=== PATIENT | male | born 1980 | race Hispanic/Latino ===

== ENCOUNTER 2017-05-05 22:51 | Emergency (ER) | payer MEDICARE, OTHER ==
[2017-05-05] MEDS ORDERED: ACETAMINOPHEN 325 MG TAB ONE (22:58)
[2017-05-05] MEDS ORDERED: OSELTAMIVIR PHOSPHATE 75 MG CAP ONE (23:38)
== END 2017-05-05 23:45 | disposition home or self-care (01) ==
LOC: EDH 22:51
DX: J10.1 Influenza due to other identified influenza virus with other respiratory manifestations (principal)
CPT/HCPCS: 87804; 87880

== ENCOUNTER → 2018-05-22 | Outpatient (CLI) | payer OTHER | END | disposition home or self-care (01) | LOC: OIH 09:38 | PROVIDERS: ATTEND Family Medicine | DX: I10 Essential (primary) hypertension (principal) | CPT/HCPCS: 71046 ==

== ENCOUNTER → 2018-08-25 | Outpatient (CLI) | payer OTHER | END | disposition home or self-care (01) | LOC: OIH 09:21 | PROVIDERS: ATTEND Family Medicine | DX: M77.32 Calcaneal spur, left foot (principal); M79.672 Pain in left foot | CPT/HCPCS: 73630 ==

== ENCOUNTER 2019-12-10 21:37 | Emergency (ER) | payer OTHER ==
[2019-12-10] MEDS ORDERED: OCTYL 2-CYANOACRYLATE 1 EACH TP ONE (23:01)
[2019-12-10 23:17] LABS: BASOPHILS % (AUTO) 0.3 % (0.0-5.0); EOSINOPHILS % (AUTO) 0.6 % (0.0-8.0); HEMATOCRIT 39.6 % (42-54); LYMPHOCYTES % (AUTO) 14.6 % (21.0-51.0); MEAN CORPUSCULAR HEMOGLOBIN 29.1 pg (27.0-33.0); MEAN CORPUSCULAR HGB CONC 33.3 g/dL (32.0-36.0); MEAN CORPUSCULAR VOLUME 87.4 fL (79-99); MONOCYTES % (AUTO) 5.5 % (3.0-13.0); NEUTROPHILS % (AUTO) 78.6 % (40.0-77.0); PLATELET COUNT (AUTO) 219 K/uL (130-400); RED BLOOD CELL COUNT(AUTO) 4.53 MIL/uL (4.50-6.20); RED CELL DISTRIBUTION WIDTH 13.2 % (11.0-15.5); WHITE BLOOD COUNT (AUTO) 11.3 K/uL (4.8-10.8)
[2019-12-10 23:26] LABS: CREATININE 1.6 mg/dL (0.5-1.5); POTASSIUM 4.1 mmol/L (3.5-5.1)
[2019-12-10 23:27] LABS: ALBUMIN 3.7 g/dL (3.5-5.0)
[2019-12-10 23:34] LABS: INR 0.99 (0.85-1.15); PARTIAL THROMBOPLASTIN TIME 25.2 SEC (26.3-35.5); PROTHROMBIN TIME 10.7 SEC (9.6-11.6)
[2019-12-11 00:36] LABS: BILIRUBIN,TOTAL 0.6 mg/dL (0.2-1.0); TOTAL PROTEIN, SERUM 7.6 g/dL (6.0-8.3)
== END 2019-12-11 00:40 | disposition home or self-care (01) ==
LOC: EDH 21:37
DX: I83.892 Varicose veins of left lower extremity with other complications (principal); E66.9 Obesity, unspecified; I10 Essential (primary) hypertension; E78.00 Pure hypercholesterolemia, unspecified; E03.9 Hypothyroidism, unspecified
CPT/HCPCS: 12001; 36415; 80053; 85025; 85610; 85730; 86850; 86900; 86901

== ENCOUNTER 2020-01-15 15:44 | Emergency (ER) | payer OTHER ==
[2020-01-15] MEDS ORDERED: SODIUM CHLORIDE 0.9% 1000ML 1,000 ML IV ONE (17:12)
[2020-01-15 17:16] LABS: BASOPHILS % (AUTO) 0.3 % (0.0-5.0); EOSINOPHILS % (AUTO) 0.5 % (0.0-8.0); HEMATOCRIT 37.7 % (42-54); LYMPHOCYTES % (AUTO) 10.3 % (21.0-51.0); MEAN CORPUSCULAR HEMOGLOBIN 28.1 pg (27.0-33.0); MEAN CORPUSCULAR HGB CONC 32.9 g/dL (32.0-36.0); MEAN CORPUSCULAR VOLUME 85.5 fL (79-99); MONOCYTES % (AUTO) 8.4 % (3.0-13.0); NEUTROPHILS % (AUTO) 79.3 % (40.0-77.0); PLATELET COUNT (AUTO) 260 K/uL (130-400); RED BLOOD CELL COUNT(AUTO) 4.41 MIL/uL (4.50-6.20); RED CELL DISTRIBUTION WIDTH 12.9 % (11.0-15.5); WHITE BLOOD COUNT (AUTO) 10.3 K/uL (4.8-10.8)
[2020-01-15] MEDS ORDERED: CLINDAMYCIN 600 MG/D5% WATER 50 ML IV ONE (17:32)
[2020-01-15 17:34] LABS: INR 1.04 (0.85-1.15); PARTIAL THROMBOPLASTIN TIME 30.1 SEC (26.3-35.5); PROTHROMBIN TIME 11.2 SEC (9.6-11.6)
[2020-01-15 17:49] LABS: CREATININE 1.2 mg/dL (0.5-1.5)
[2020-01-15 17:50] LABS: B-TYPE NATRIURETIC PEPTIDE 32 pg/mL (0-100)
[2020-01-15 17:54] LABS: ALBUMIN 3.6 g/dL (3.5-5.0); BILIRUBIN,TOTAL 0.9 mg/dL (0.2-1.0); TOTAL PROTEIN, SERUM 8.3 g/dL (6.0-8.3)
[2020-01-15 18:02] LABS: CRP QUANTITATIVE 166.7 mg/L (0.00-9.0)
[2020-01-15 18:23] LABS: ERYTHROCYTE SEDIMENTATION RATE 76 MM/HR (0-15)
== END 2020-01-15 18:56 | disposition home or self-care (01) ==
LOC: EDH 15:44
DX: I87.2 Venous insufficiency (chronic) (peripheral) (principal); L03.116 Cellulitis of left lower limb; R60.0 Localized edema; E78.00 Pure hypercholesterolemia, unspecified; I10 Essential (primary) hypertension; E03.9 Hypothyroidism, unspecified
CPT/HCPCS: 36415; 71045; 80053; 82550; 83880; 84484; 85025; 85610; 85651; 85730; 86140; 93005; 93971; 96365; 99285; J3490; J7030

== ENCOUNTER → 2020-04-07 | Outpatient (CLI) | payer OTHER | END | disposition home or self-care (01) | LOC: SHCH 14:08 | PROVIDERS: ATTEND Internal Medicine Cardiovascular Disease | DX: Z09 Encounter for follow-up examination after completed treatment for conditions other than malignant neoplasm (principal); I87.2 Venous insufficiency (chronic) (peripheral) | CPT/HCPCS: 93971 ==

== ENCOUNTER → 2020-07-28 | Outpatient (CLI) | payer OTHER, MEDICARE | END | disposition home or self-care (01) | LOC: OIH 13:47 | PROVIDERS: ATTEND Family Medicine | DX: J44.9 Chronic obstructive pulmonary disease, unspecified (principal) | CPT/HCPCS: 71046 ==

== ENCOUNTER → 2020-09-16 | Outpatient (CLI) | payer OTHER, MEDICARE | END | disposition home or self-care (01) | LOC: SHCH 14:46 | PROVIDERS: ATTEND Internal Medicine Cardiovascular Disease | DX: I87.2 Venous insufficiency (chronic) (peripheral) (principal); Q25.46 Tortuous aortic arch | CPT/HCPCS: 93970 ==

== ENCOUNTER 2020-12-17 21:39 | Emergency (ER) | payer OTHER, MEDICARE ==
[~2020-12-17] VITALS: Ht 167.6 cm; Wt 164.2 kg
[2020-12-17 21:40] VITALS: BP 101/58
[2020-12-18] MEDS ORDERED: IBUPROFEN 600 MG TABLET PO ONE
[2020-12-18] MEDS ORDERED: ACETAMINOPHEN 500 MG TABLET PO ONE
[2020-12-18 00:20] LABS: APPEARANCE,URINE Clear (CLEAR); BILIRUBIN,URINE Negative (NEGATIVE); COLOR,URINE Yellow (YELLOW); GLUCOSE, URINE (UA) Negative (NEGATIVE); KETONES,URINE Negative (NEGATIVE); LEUKOCYTE ESTERASE ,URINE Negative (NEGATIVE); NITRATE,URINE Negative (NEGATIVE); OCCULT BLOOD,URINE Negative (NEGATIVE); PH,URINE 5.5 (5.0-8.0); PROTEIN,URINE Negative (NEGATIVE); UROBILINOGEN,URINE 0.2 mg/dL (0.2-1.0)
[2020-12-18 01:05] LABS: BASOPHILS % (AUTO) 0.3 % (0.0-5.0); EOSINOPHILS % (AUTO) 0.2 % (0.0-8.0); HEMATOCRIT 41.7 % (42-54); LYMPHOCYTES % (AUTO) 6.2 % (21.0-51.0); MEAN CORPUSCULAR HEMOGLOBIN 29.6 pg (27.0-33.0); MEAN CORPUSCULAR HGB CONC 33.6 g/dL (32.0-36.0); MEAN CORPUSCULAR VOLUME 88.2 fL (79-99); MONOCYTES % (AUTO) 4.4 % (3.0-13.0); NEUTROPHILS % (AUTO) 88.6 % (40.0-77.0); PLATELET COUNT (AUTO) 206 K/uL (130-400); RED BLOOD CELL COUNT(AUTO) 4.73 MIL/uL (4.50-6.20); RED CELL DISTRIBUTION WIDTH 13.8 % (11.0-15.5); WHITE BLOOD COUNT (AUTO) 9.5 K/uL (4.8-10.8)
[2020-12-18 01:19] LABS: ALBUMIN 3.6 g/dL (3.5-5.0); BILIRUBIN,TOTAL 0.9 mg/dL (0.2-1.0); CREATININE 1.5 mg/dL (0.5-1.5); POTASSIUM 4.1 mmol/L (3.5-5.1); TOTAL PROTEIN, SERUM 8.6 g/dL (6.0-8.3)
[2020-12-18 01:23] LABS: B-TYPE NATRIURETIC PEPTIDE 61 pg/mL (0-100)
[2020-12-18] MEDS ORDERED: CLINDAMYCIN IVPB 900MG/50ML 50 ML IV ONE (01:30)
[2020-12-18] MEDS ORDERED: CLIN300C10 PO (03:09)
== END 2020-12-18 03:59 | disposition home or self-care (01) ==
LOC: EDH 21:39
DX: L03.116 Cellulitis of left lower limb (principal); R50.9 Fever, unspecified; R60.0 Localized edema; R63.0 Anorexia; Z20.822 Contact with and (suspected) exposure to COVID-19; E03.9 Hypothyroidism, unspecified; E11.9 Type 2 diabetes mellitus without complications; E78.00 Pure hypercholesterolemia, unspecified; Z79.1 Long term (current) use of non-steroidal anti-inflammatories (NSAID); Z68.43 Body mass index [BMI] 50.0-59.9, adult
CPT/HCPCS: 36415; 71045; 80053; 81003; 83605; 83880; 84145; 84484; 85025; 87040; 87077; 87088; 87186; 87635; 87804; 93005; 96365; C9803; J3490

== ENCOUNTER 2021-03-29 01:24 | Emergency (ER) | payer OTHER, MEDICARE ==
[~2021-03-29] VITALS: Ht 167.6 cm; Wt 167.4 kg
[~2021-03-29 01:24] MED LIST: CLIN-141 PO
[2021-03-29] MEDS ORDERED: IOHEXOL 350 MG/ML 100ML INFUS..BTL IV ONE (01:50)
[2021-03-29 01:54] LABS: BASOPHILS % (AUTO) 0.7 % (0.0-5.0); EOSINOPHILS % (AUTO) 2.5 % (0.0-8.0); HEMATOCRIT 46.6 % (42-54); LYMPHOCYTES % (AUTO) 20.6 % (21.0-51.0); MEAN CORPUSCULAR HEMOGLOBIN 29.2 pg (27.0-33.0); MEAN CORPUSCULAR VOLUME 88.3 fL (79-99); MONOCYTES % (AUTO) 5.9 % (3.0-13.0); NEUTROPHILS % (AUTO) 69.7 % (40.0-77.0); PLATELET COUNT (AUTO) 213 K/uL (130-400); RED BLOOD CELL COUNT(AUTO) 5.28 MIL/uL (4.50-6.20); RED CELL DISTRIBUTION WIDTH 13.8 % (11.0-15.5); WHITE BLOOD COUNT (AUTO) 9.6 K/uL (4.8-10.8)
[2021-03-29 01:57] LABS: CARBON DIOXIDE 25 mmol/L (21-32); CHLORIDE 101 mmol/L (101-111); CREATININE 1.3 mg/dL (0.5-1.5); GLOMERULAR FILTR. RATE CALC 65 mL/min (>60); GLUCOSE,RANDOM 107 mg/dL (70-105); POTASSIUM 4.4 mmol/L (3.5-5.1); SODIUM SERUM 135 mmol/L (136-145); UREA NITROGEN, BLOOD 22 mg/dL (7-18)
[2021-03-29 02:02] LABS: ALANINE AMINOTRANSFERASE 33 U/L (12-78); ALBUMIN 4.2 g/dL (3.5-5.0); ALCOHOL, BLOOD < 3 mg/dL (0-10); ASPARTATE AMINOTRANSFERASE 29 U/L (10-37); BILIRUBIN,TOTAL 0.4 mg/dL (0.2-1.0); LIPASE 113 U/L (114-286)
[2021-03-29 02:05] LABS: APPEARANCE,URINE Clear (CLEAR); BILIRUBIN,URINE Negative (NEGATIVE); COLOR,URINE Yellow (YELLOW); GLUCOSE, URINE (UA) Negative (NEGATIVE); KETONES,URINE Negative (NEGATIVE); LEUKOCYTE ESTERASE ,URINE Negative (NEGATIVE); NITRATE,URINE Negative (NEGATIVE); OCCULT BLOOD,URINE Negative (NEGATIVE); PH,URINE 5.5 (5.0-8.0); PROTEIN,URINE Trace mg/dL (NEGATIVE); UROBILINOGEN,URINE 0.2 mg/dL (0.2-1.0)
[2021-03-29 02:15] LABS: AMPHET/METH SCREEN,URINE NEGATIVE (NEGATIVE); BARBITURATE SCREEN, URINE NEGATIVE (NEGATIVE); BENZODIAZEPINES SCREEN,URINE NEGATIVE (NEGATIVE); CANNABINOID SCREEN,URINE NEGATIVE (NEGATIVE); COCAINE SCREEN,URINE NEGATIVE (NEGATIVE); OPIATE SCREEN,URINE NEGATIVE (NEGATIVE); PHENCYCLIDINE SCREEN,URINE NEGATIVE (NEGATIVE)
[2021-03-29 02:24] LABS: B-TYPE NATRIURETIC PEPTIDE 9 pg/mL (0-100)
[2021-03-29 02:33] LABS: RBC,URINE 0-1 /HPF (0-1); WBC,URINE 0-1 /HPF (0-1)
[2021-03-29 02:34] LABS: BACTERIA,URINE Rare /HPF (None Seen)
[2021-03-29] MEDS ORDERED: CYCL-309 PO (03:49)
[2021-03-29] MEDS ORDERED: MELO7.5T12 PO (03:49)
[2021-03-29] MEDS ORDERED: KETOROLAC 30MG VIAL (30MG/ML) IV ONE (04:00)
[2021-03-29] MEDS ORDERED: ORPHENADRINE CITRATE 30 MG/ML ML IV ONE (04:00)
[2021-03-29 04:08] VITALS: BP 153/92
== END 2021-03-29 04:24 | disposition home or self-care (01) ==
LOC: EDH 01:24
DX: S39.011A Strain of muscle, fascia and tendon of abdomen, initial encounter (principal); S30.1XXA Contusion of abdominal wall, initial encounter; E03.9 Hypothyroidism, unspecified; E78.00 Pure hypercholesterolemia, unspecified; I10 Essential (primary) hypertension; K42.9 Umbilical hernia without obstruction or gangrene; Z79.1 Long term (current) use of non-steroidal anti-inflammatories (NSAID); Z95.5 Presence of coronary angioplasty implant and graft; V49.3XXA Car occupant (driver) (passenger) injured in unspecified nontraffic accident, initial encounter; Y93.89 Activity, other specified; Y92.89 Other specified places as the place of occurrence of the external cause; Y99.8 Other external cause status
CPT/HCPCS: 36415; 70450; 71260; 72125; 74177; 80053; 80305; 81001; 83690; 83880; 84484; 85025; 93005; 96374; 96375; 99285; J1885; J2360; Q9967

== ENCOUNTER 2021-10-04 13:30 | Emergency (ER) | payer MEDICARE, OTHER ==
[~2021-10-04] VITALS: Ht 175.3 cm; Wt 184.2 kg
[~2021-10-04 13:30] MED LIST changes: +CYCL-309 PO; +MELO7.5T12 PO
[2021-10-04 13:52] VITALS: BP 119/77
== END 2021-10-04 14:41 | disposition home or self-care (01) ==
LOC: EDH 13:30
DX: I83.891 Varicose veins of right lower extremity with other complications (principal); E03.9 Hypothyroidism, unspecified; E78.00 Pure hypercholesterolemia, unspecified; I10 Essential (primary) hypertension; Z79.1 Long term (current) use of non-steroidal anti-inflammatories (NSAID)
CPT/HCPCS: 12001; 35226; 99282